=== PATIENT | female | born 1965 | race Caucasian/White ===

== ENCOUNTER 2018-09-17 11:03 | Observation (INO) | payer BC ==
[~2018-09-17] VITALS: Ht 157.5 cm; Wt 62.0 kg
[~2018-09-17 11:03] MED LIST: ACET325 PO; CIPR500 PO; DITROPAN; HALO.05TC TOP; HYDMOR2 PO; IBUP200 PO; LISINOPRIL; LUXIQ TOP; METF500 PO; PERCOCET; PROM25 PO; Pravachol; RXHYDMOR2 PO; RXPROM25 PO
[2018-09-17 11:35] LABS: BASOPHILS ABSOLUTE AUTO 0.02 K/mm3 (0.00-0.23); BASOPHILS PERCENT AUTO 0 % (0-2); EOSINOPHILS ABSOLUTE AUTO 0.03 K/mm3 (0.00-0.68); EOSINOPHILS PERCENT AUTO 0 % (0-6); Hematocrit 43.6 % (33.0-51.0); Hemoglobin 14.1 g/dL (11.5-16.0); IMMATURE GRAN ABSOLUTE AUTO 0.04 K/mm3 (0.00-0.10); IMMATURE GRAN PERCENT AUTO 1 % (0-1); LYMPHOCYTES ABSOLUTE AUTO 1.59 K/mm3 (0.84-5.20); LYMPHOCYTES PERCENT AUTO 20 % (21-46); MONOCYTES ABSOLUTE AUTO 0.27 K/mm3 (0.16-1.47); MONOCYTES PERCENT AUTO 4 % (4-13); Mean Corpuscular HGB 32.7 pg (26.0-34.0); Mean Corpuscular HGB Conc 32.3 g/dL (31.5-36.5); Mean Corpuscular Volume 101 fL (80-100); Mean Platelet Volume 9.8 fL (9.1-12.4); NEUTROPHILS ABSOLUTE AUTO 5.87 K/mm3 (1.96-9.15); NEUTROPHILS PERCENT AUTO 75 % (41-73); Platelet Count 379 K/mm3 (150-400); RDW Coefficient Variation 12.6 % (11.7-14.2); Red Blood Cell Count 4.31 M/mm3 (3.80-5.20); White Blood Cell Count 7.82 K/mm3 (4.00-11.30)
[2018-09-17 11:55] LABS: Alanine Aminotransfer (ALT/SGP 123 U/L (12-78); Albumin, Blood 4.1 g/dL (3.4-5.0); Albumin/Globulin Ratio 0.9 (0.8-1.8); Alk Phos 89 U/L (50-136); Anion Gap 10 mmol/L (6-16); Aspartate Aminotrans (AST/SGOT 62 U/L (12-37); Bilirubin, Total 0.4 mg/dL (0.1-1.0); Blood Urea Nitrogen 11 mg/dL (8-24); Bun/Creatinine Ratio 15.5 (12.0-20.0); CO2, Blood 27 mmol/L (21-32); Calcium, Blood 9.3 mg/dL (8.5-10.1); Chloride, Blood 101 mmol/L (98-108); Creatinine, Blood 0.71 mg/dL (0.40-1.00); Free Thyroxine 0.89 ng/dL (0.70-1.60); Globulin, Blood 4.7 g/dL (2.2-4.0); Glomerular Filtration Rate >60 (60-); Glucose, Blood 130 mg/dL (70-99); Sodium, Blood 138 mmol/L (136-145); Total Protein, Blood 8.8 g/dL (6.4-8.2); Troponin I <0.015 ng/mL (0.000-0.040)
[2018-09-17 11:58] LABS: Thyroid Stimulating Hormone 0.811 uIU/mL (0.360-4.800)
[2018-09-17] MEDS ORDERED: ASPI81CH PO (14:08)
[2018-09-17] MEDS ORDERED: HYDCOR20 PO (14:09)
[2018-09-17] MEDS ORDERED: VERA120ERB PO (14:09)
[2018-09-17] MEDS ORDERED: Oxycodone HCl5 M1 PO (23:31)
[2018-09-18 04:45] LABS: Anion Gap 9 mmol/L (6-16); Blood Urea Nitrogen 14 mg/dL (8-24); Bun/Creatinine Ratio 17.4 (12.0-20.0); CO2, Blood 28 mmol/L (21-32); Calcium, Blood 8.9 mg/dL (8.5-10.1); Chloride, Blood 103 mmol/L (98-108); Glomerular Filtration Rate >60 (60-); Glucose, Blood 115 mg/dL (70-99); Potassium, Blood 3.7 mmol/L (3.5-5.5); Sodium, Blood 140 mmol/L (136-145)
[2018-09-18] MEDS ORDERED: Toprol Xl50 MG PO (08:55)
== END 2018-09-18 10:50 | disposition home or self-care (01) ==
LOC: ER 11:03 → ERHOLD 11:04 → PCU 21:23
PROVIDERS: Hospitalist; Physician Assistant
DX: R00.0 Tachycardia, unspecified (principal); E11.9 Type 2 diabetes mellitus without complications; I10 Essential (primary) hypertension; E27.40 Unspecified adrenocortical insufficiency; Z88.0 Allergy status to penicillin; Z88.1 Allergy status to other antibiotic agents; Z79.82 Long term (current) use of aspirin; Z79.899 Other long term (current) drug therapy; Z86.73 Personal history of transient ischemic attack (TIA), and cerebral infarction without residual deficits
CPT/HCPCS: 36415; 71046; 71260; 80048; 80053; 82947; 84439; 84443; 84484; 85025; 93005; 93010; 93306; 99285-25; Q9967

== ENCOUNTER 2019-05-10 18:29 | Emergency (ER) | payer BC ==
[~2019-05-10] VITALS: Ht 157.5 cm; Wt 59.0 kg
[~2019-05-10 18:29] MED LIST changes: +ASPI81CH PO; +HYDCOR20 PO; +Oxycodone HCl5 M1 PO; +Toprol Xl50 MG PO; +VERA120ERB PO
[2019-05-10 19:21] LABS: BASOPHILS ABSOLUTE AUTO 0.04 K/mm3 (0.00-0.23); BASOPHILS PERCENT AUTO 1 % (0-2); EOSINOPHILS ABSOLUTE AUTO 0.06 K/mm3 (0.00-0.68); EOSINOPHILS PERCENT AUTO 1 % (0-6); IMMATURE GRAN ABSOLUTE AUTO 0.02 K/mm3 (0.00-0.10); IMMATURE GRAN PERCENT AUTO 0 % (0-1); LYMPHOCYTES ABSOLUTE AUTO 1.08 K/mm3 (0.84-5.20); LYMPHOCYTES PERCENT AUTO 13 % (21-46); MONOCYTES ABSOLUTE AUTO 0.51 K/mm3 (0.16-1.47); MONOCYTES PERCENT AUTO 6 % (4-13); Mean Corpuscular HGB Conc 33.3 g/dL (31.5-36.5); Mean Corpuscular Volume 99 fL (80-100); Mean Platelet Volume 10.3 fL (9.1-12.4); NEUTROPHILS ABSOLUTE AUTO 6.78 K/mm3 (1.96-9.15); NEUTROPHILS PERCENT AUTO 80 % (41-73); Platelet Count 258 K/mm3 (150-400); RDW Coefficient Variation 12.3 % (11.7-14.2); RDW Standard Deviation 44.5 fL (35.1-46.3); Red Blood Cell Count 4.24 M/mm3 (3.80-5.20); White Blood Cell Count 8.49 K/mm3 (4.00-11.30)
[2019-05-10 19:29] LABS: Source, Urine Clean Catch
[2019-05-10 19:32] LABS: Bilirubin, Urine Neg (Neg); Blood, Urine 3+ (Neg); Glucose Qualitative, Urine Neg (Neg); Ketones, Urine Neg (Neg); Leukocyte Esterase, Urine Neg (Neg); Nitrite, Urine Neg (Neg); Protein, Urine Neg (Neg); Specific Gravity, Urine 1.005 (1.003-1.022); Urobilinogen, Urine NORM (Normal)
[2019-05-10 19:39] LABS: Appearance, Urine Clear (Clear); Color, Urine Yellow (P-Yellow)
[2019-05-10 19:40] LABS: Bacteria Few /hpf; Squamous Epithelial Cells Few /hpf (Few); White Blood Cells, Urine 0-2 /hpf (0-5)
[2019-05-10 19:41] LABS: Alanine Aminotransfer (ALT/SGP 84 U/L (12-78); Albumin, Blood 3.8 g/dL (3.4-5.0); Alk Phos 73 U/L (50-136); Anion Gap 6 mmol/L (6-16); Aspartate Aminotrans (AST/SGOT 45 U/L (12-37); Bilirubin, Total 0.6 mg/dL (0.1-1.0); Blood Urea Nitrogen 12 mg/dL (8-24); Bun/Creatinine Ratio 12.6 (12.0-20.0); CO2, Blood 27 mmol/L (21-32); Calcium, Blood 9.4 mg/dL (8.5-10.1); Chloride, Blood 100 mmol/L (98-108); Creatinine, Blood 0.95 mg/dL (0.40-1.00); Glomerular Filtration Rate >60 (60-); Glucose, Blood 118 mg/dL (70-99); Sodium, Blood 133 mmol/L (136-145); Total Protein, Blood 7.8 g/dL (6.4-8.2)
[2019-05-10] MEDS ORDERED: KETO10 PO (20:44)
[2019-05-10] MEDS ORDERED: ONDA4ODT MM (20:44)
== END 2019-05-10 21:00 | disposition home or self-care (01) ==
LOC: ER 18:29
PROVIDERS: Emergency Medicine
DX: N20.0 Calculus of kidney (principal); Z88.0 Allergy status to penicillin; Z88.8 Allergy status to other drugs, medicaments and biological substances; Z79.899 Other long term (current) drug therapy; Z79.82 Long term (current) use of aspirin; Z86.73 Personal history of transient ischemic attack (TIA), and cerebral infarction without residual deficits; E11.9 Type 2 diabetes mellitus without complications; E78.00 Pure hypercholesterolemia, unspecified; Z87.442 Personal history of urinary calculi
CPT/HCPCS: 36415; 80053; 81001; 83690; 85025; 96374; 96375; 99284-25; A9270-GY; J1885; J2405

== ENCOUNTER → 2019-06-15 | Outpatient (CLI) | payer BC ==
[~2019-06-15] MED LIST changes: +KETO10 PO; +ONDA4ODT MM
[2019-06-22 11:07] LABS: CALCIUM OXALATE 4.57 ratio (0.00-6.00); CALCIUM, URINE 11.3 mg/dL (Not Estab.); CALCIUM, URINE 214.7 mg/24 hr (100.0-300.0); CHLORIDE URINE 72 (110-250); CITRIC ACID (CITRATE) 100 mg/L (Not Estab.); CITRIC ACID(CITRATE) 190 mg/24 hr (320-1240); MAGNESIUM, URINE 2.3 mg/dL (Not Estab.); OSMOLALITY, URINE 272 (300-900); SODIUM, URINE 46 mmol/L (Not Estab.); SODIUM, URINE 87 (39-258); STRUVITE 0.01 ratio (0.00-1.00); URIC ACID 0.85 ratio (0.00-1.20); URINE VOLUME 1900 mL/24 hr (600-1600); URINE VOLUME (PRESERVATIVE) 1900 mL/24 hr (600-1600)
== END | disposition home or self-care (01) ==
LOC: LAB SHORT 07:44 → LAB 07:44 → LAB FUT 06-13 11:50
PROVIDERS: Internal Medicine
DX: N20.0 Calculus of kidney (principal)
CPT/HCPCS: 81003; 81050; 82131; 82140; 82340; 82436; 82507; 82570; 83735; 83935; 83945; 84105; 84133; 84300; 84392; 84560

== ENCOUNTER → 2021-04-12 | Outpatient (CLI) | payer BC ==
[2021-04-12 21:14] LABS: Creatinine, Urine Random 75.7 mg/dL (27.00-270.00)
[2021-04-12 21:17] LABS: Microalb/Creat Ratio UR, Rand 15.456 mg/g (0.000-30.000); Microalbumin, Random Urine 11.7 mg/L (0.000-20.000)
== END | disposition home or self-care (01) ==
LOC: LAB SHORT 16:20 → LAB 16:20
PROVIDERS: Internal Medicine
DX: E11.9 Type 2 diabetes mellitus without complications (principal); E55.9 Vitamin D deficiency, unspecified; E78.5 Hyperlipidemia, unspecified; Z79.899 Other long term (current) drug therapy
CPT/HCPCS: 82043; 82570

== ENCOUNTER → 2021-09-27 | Outpatient (CLI) | payer BC | END | disposition home or self-care (01) | LOC: LAB SHORT 08:12 | DX: L30.8 Other specified dermatitis (principal) | CPT/HCPCS: 88305; 88312 ==

== ENCOUNTER 2023-10-08 07:19 | Day surgery (SDC) | payer BC, OTHER ==
[~2023-10-08] VITALS: Ht 157.5 cm; Wt 59.7 kg
[~2023-10-08 07:19] MED LIST changes: +ALBU90OI INH; +DUPIXENT300 MG/21 SQ; +MONT10T PO; +NEBI5 PO
[2023-10-08] MEDS ORDERED: CLOP75 (07:49)
[2023-10-08] MEDS ORDERED: ASPI81CH (07:50)
[2023-10-08] MEDS ORDERED: TRULICITY3 MG/0.5 M (07:50)
[2023-10-08] MEDS ORDERED: Vitamin B-1250 MC1 (07:51)
[2023-10-08] MEDS ORDERED: VITAMIN D5000 UNIT (07:51)
[2023-10-08] MEDS ORDERED: ZYRTEC10 M2 (07:52)
[2023-10-08 09:45] VITALS: BP 125/78
--- NOTE | 2023-10-08 09:48 | NUR ---
10/08/23 0948 Fiona Miller IV DC'D WNL, CATH INTACT. SITE WRAPPED IN COBAN. PT TOLERATED IV DC WELL.
== END 2023-10-08 09:35 | disposition home or self-care (01) ==
LOC: ORSCSDS 07:19
PROVIDERS: Internal Medicine Gastroenterology
PROC: 0DBH8ZX Excision of Cecum, Via Natural or Artificial Opening Endoscopic, Diagnostic (ICD-10-PCS; principal; 2023-10-08 08:45)
DX: Z12.11 Encounter for screening for malignant neoplasm of colon (principal); Z86.010 Personal history of colon polyps; D12.0 Benign neoplasm of cecum; K57.30 Diverticulosis of large intestine without perforation or abscess without bleeding; Z86.73 Personal history of transient ischemic attack (TIA), and cerebral infarction without residual deficits; Z79.02 Long term (current) use of antithrombotics/antiplatelets; Z79.899 Other long term (current) drug therapy; Z79.82 Long term (current) use of aspirin
CPT/HCPCS: 82947; 88305; J2704; J7120

== ENCOUNTER 2024-07-04 05:18 | Emergency (ER) | payer BC, OTHER ==
[~2024-07-04] VITALS: Ht 157.5 cm; Wt 62.6 kg
[~2024-07-04 05:18] MED LIST changes: +ASPI81CH; +CLOP75; +TRULICITY3 MG/0.5 M; +VITAMIN D5000 UNIT; +Vitamin B-1250 MC1; +ZYRTEC10 M2
[2024-07-04] MEDS ORDERED: Ondansetron HCl 2 MG / ML 2ML Vial IV ONE (05:45)
[2024-07-04] MEDS ORDERED: HYDROmorphone HCl/Pf 1MG SYR IV ONE (05:55)
[2024-07-04] MEDS ORDERED: NS 1,000 ML IV SCH (05:55)
[2024-07-04] MEDS ORDERED: Ketorolac Tromethamine 30mg Vial IV ONE (05:55)
[2024-07-04 05:57] LABS: BASOPHILS ABSOLUTE AUTO 0.03 K/mm3 (0.00-0.23); BASOPHILS PERCENT AUTO 1 % (0-2); EOSINOPHILS ABSOLUTE AUTO 0.27 K/mm3 (0.00-0.68); EOSINOPHILS PERCENT AUTO 4 % (0-6); Hematocrit 43.5 % (33.0-51.0); Hemoglobin 15.2 g/dL (11.5-16.0); IMMATURE GRAN ABSOLUTE AUTO 0.03 K/mm3 (0.00-0.10); IMMATURE GRAN PERCENT AUTO 1 % (0-1); LYMPHOCYTES PERCENT AUTO 37 % (21-46); MONOCYTES ABSOLUTE AUTO 0.37 K/mm3 (0.16-1.47); MONOCYTES PERCENT AUTO 6 % (4-13); Mean Corpuscular HGB 34.2 pg (26.0-34.0); Mean Corpuscular HGB Conc 34.9 g/dL (31.5-36.5); Mean Corpuscular Volume 98 fL (80-100); Mean Platelet Volume 10.3 fL (9.1-12.4); NEUTROPHILS ABSOLUTE AUTO 3.26 K/mm3 (1.96-9.15); NEUTROPHILS PERCENT AUTO 52 % (41-73); Platelet Count 231 K/mm3 (150-400); RDW Coefficient Variation 12.4 % (11.7-14.2); RDW Standard Deviation 44.5 fL (35.1-46.3); Red Blood Cell Count 4.45 M/mm3 (3.80-5.20); White Blood Cell Count 6.26 K/mm3 (4.00-11.30)
[2024-07-04 06:14] LABS: Albumin/Globulin Ratio 0.9 (0.8-1.8); Bilirubin, Total 0.5 mg/dL (0.1-1.0); Bun/Creatinine Ratio 13.5 (12.0-20.0); Calcium, Blood 10.1 mg/dL (8.5-10.1); Creatinine, Blood 0.82 mg/dL (0.40-1.00); Globulin, Blood 4.3 g/dL (2.2-4.0); Potassium, Blood 4.2 mmol/L (3.5-5.5); Total Protein, Blood 8.3 g/dL (6.4-8.2)
[2024-07-04 07:35] LABS: Source, Urine Clean Catch
[2024-07-04 07:42] LABS: Appearance, Urine Clear (Clear); Bilirubin, Urine Neg (Neg); Blood, Urine Neg (Neg); Color, Urine Yellow (P-Yellow); Glucose Qualitative, Urine Neg (Neg); Ketones, Urine Neg (Neg); Leukocyte Esterase, Urine 3+ (Neg); Nitrite, Urine Neg (Neg); Protein, Urine Neg (Neg); Specific Gravity, Urine 1.005 (1.003-1.022); Urobilinogen, Urine NORM (Normal); pH, Urine 6.5 (5.0-8.0)
[2024-07-04 07:50] LABS: Bacteria Few /hpf; Red Blood Cells, Urine 0-2 /hpf (0-2); Squamous Epithelial Cells Rare /hpf (Few)
[2024-07-04 08:30] VITALS: BP 110/64
[2024-07-04] MEDS ORDERED: CefTRIAXone Sodium 1,000 MG in NS 100 ML IV ONE (08:45)
[2024-07-04] MEDS ORDERED: Tamsulosin HCl 0.4 MG Cap PO ONE (08:45)
[2024-07-04] MEDS ORDERED: CLOP75 PO (08:57)
[2024-07-04] MEDS ORDERED: CEFP200 PO (09:09)
[2024-07-04] MEDS ORDERED: Percocet 5-3251 EACH PO (09:09)
== END 2024-07-04 09:32 | disposition home or self-care (01) ==
LOC: ER 05:18
PROVIDERS: Student in an Organized Health Care Education/Training Program
DX: N13.2 Hydronephrosis with renal and ureteral calculous obstruction (principal); R79.89 Other specified abnormal findings of blood chemistry; E11.9 Type 2 diabetes mellitus without complications; E78.5 Hyperlipidemia, unspecified; Z79.82 Long term (current) use of aspirin; Z79.899 Other long term (current) drug therapy; Z88.0 Allergy status to penicillin; Z88.8 Allergy status to other drugs, medicaments and biological substances
CPT/HCPCS: 74176; 80053; 81001; 83690; 85025; 87086; 96361; 96365; 96375; 99284-25; A9270; J0696; J1170; J1885; J2405; J7030